=== PATIENT | female | born 1980 | race Caucasian/White ===

== ENCOUNTER 2018-04-13 15:39 | Emergency (ER) | payer MEDICAID ==
[2018-04-13] MEDS ORDERED: fentaNYL 100 MCG/2 ML INJ IVP ONE ×2 (16:24→18:15)
--- NOTE | 2018-04-13 16:29 | EDPHY ---
HPI/HX/ROS/PE/MDM Narrative: CHIEF COMPLAINT: , lower abdominal pain, vaginal discharge HISTORY OF PRESENT ILLNESS: The patient is a South African-speaking 19-week 38 y/o female arriving from [facility] complaining of lower abdominal pain and vaginal discharge worsening over the last day. She is A1 with a history of a prior miscarriage at 10 weeks in August 2017 and a delivery at 7 months with her daughter. She first noticed increased white vaginal discharge and mild lower abdominal pain yesterday. She went to her scheduled monthly OBGYN exam yesterday and declined an US due to cost, but otherwise was told she had a normal exam. She did have a headache at that time. Today she had increasing abdominal pain and returned to the clinic where the provider saw something "like the bag of holt" and referred her directly to the ED. She last felt movement this morning. This has progressed normally for her until these symptoms. She denies vaginal bleeding, urinary symptoms, vomiting, fever. Per [facility] paperwork, there was trace protein in her urine during her clinic visit today. No fever, chills, chest pain, shortness of breath, palpitations, vomiting, diarrhea, urinary complaints, lightheadedness. REVIEW OF SYSTEMS: Aside from elements discussed in the HPI, a comprehensive 10-point review of systems was reviewed and is negative. PAST MEDICAL HISTORY: A1 (spontaneous), Blood type: A+ SOCIAL HISTORY: South African-speaking, history obtained via South African-speech language pathologist prn. [facility] patient. VITAL SIGNS: Reviewed by me GENERAL: Well-developed, well-nourished, no respiratory distress. Is complaining of lower abdominal pain. HEENT: Atraumatic. Eyes: No icterus, no injection. Mouth: moist mucous membranes. No erythema or lesions. Neck: supple with no adenopathy. LUNGS: Clear to auscultation bilaterally, no wheezes, rhonchi or rales. CARDIAC: Regular rate and rhythm, no rubs, murmurs or gallops. ABDOMEN: Soft, the uterus is palpable to just below the level of the umbilicus. Mild tenderness over the lower uterine segment. : External exam: No blood noted. No discharge. Internal exam, speculum exam is deferred at this time. BACK: No CVA tenderness. EXTREMITIES: No trauma. No edema. Range of motion is normal throughout. NEURO: Alert and oriented, grossly nonfocal. SKIN: Warm and dry, no rash. PSYCHIATRIC: Normal mentation, no agitation. Portions of this note were transcribed by a diagnostic medical sonographer. I personally performed a history, physical exam, medical decision making, and confirmed accuracy of information the transcribed note. ED Course: External genital exam here is normal. Plan for IV and OBGYN consultation. 1610: Consulted with FELICE Bishop. He will assess patient in the ED and perform speculum exam. 50mcg IV Fentanyl ordered for pain. 1630: Limited bedside Obstetrics US performed by me shows brisk activity and heartbeat. Patient viewed US as well and viewed heartbeat. Dr. Rizvi is currently in the room assessing patient. Dr. Rizvi plans on transfer to [place] and will arrange transport. Patient received additional IV fluids secondary to complaints of lower abdominal discomfort and received fentanyl and Dilaudid for discomfort. Transport to [facility] was delayed for unclear reasons. 1930: Patient is now bleeding and called for assistance. Reassessed patient. She is having increased abdominal pain. Pelvic exam: cervical os is dilated on visual examination to about 3cm and bluish bag of holt visible behind it. Thin, watery bleeding is present. No clots. 193: Dr. Rizvi is also at bedside assessing patient. He feels of the patient's exam is not significantly changed from previously although the patient is having worsening pain. Advised that the best place for the patient remains [facility]. Eminent delivery is not felt to be present. We contacted EMS and advised that the patient needs to be emergently transported to [facility]. Shortly thereafter, [facility] present to the emergency department and transported the patient to [facility] emergently. Please see Dr. Rizvi's EMTALA firn regarding accepting physician. MDM: Differential diagnoses for the patient's symptom complex was considered including but not limited to the premature rupture of membranes, 2nd trimester miscarriage, distress, threatened miscarriage, placental abruption, placenta previa, cervical incompetence. - Data Points Medications Given: Discontinued Medications Fentanyl (Sublimaze) 50 mcg IVP EDNOW ONE Stop: 04/13/18 16:25 Last Admin: 04/13/18 16:34 Dose: 50 mcg Fentanyl (Sublimaze) 50 mcg IVP EDNOW ONE Stop: 04/13/18 18:16 Last Admin: 04/13/18 18:17 Dose: 50 mcg Hydromorphone HCl (Dilaudid) 1 mg IVP EDNOW ONE Stop: 04/13/18 18:44 Last Admin: 04/13/18 18:46 Dose: 1 mg Hydromorphone HCl (Dilaudid) 1 mg IVP EDNOW ONE Stop: 04/13/18 19:51 Last Admin: 04/13/18 19:55 Dose: 1 mg General Time Seen by Provider: 04/13/18 15:56 Initial Vital Signs: Initial Vital Signs Temperature (C) 36.7 C 04/13/18 15:49 Heart Rate 98 04/13/18 15:49 Respiratory Rate 19 04/13/18 15:49 Blood Pressure 110/71 04/13/18 15:49 O2 Sat (%) 96 04/13/18 15:49 O2 Delivery Mode Room Air Allergies/Adverse Reactions: Penicillins Allergy (Verified 04/13/18 15:48) Home Medications: Medication Instructions Recorded 04/13/18 Tylenol 04/13/18 Departure - Departure Disposition: Acute Care Hospital Not [facility] Clinical Impression: Threatened miscarriage Premature rupture of membranes Qualifiers: PROM onset of labor timing: unspecified duration between rupture of membranes and onset of labor PROM gestational age: -second trimester Qualified Code (s): O42.912 - premature rupture of membranes, unspecified as to length of time between rupture and onset of labor, second trimester Condition: Serious Referrals: NONE *PRIMARY CARE P,. [Primary Care Provider] - As per Instructions Report Scribed for: Rosmery Shaffer Report Scribed by: Kacie Syed Date of Report: 04/13/18 Time of Report: 16:30
--- NOTE | 2018-04-13 17:31 | PDCONSULT ---
Supervisor Prop Making Note: Consulting Service: ER Reason for Consultation: labor, suspected History of Present Illness: 38 yo at 19w3d by LMP c/w 8wk US with KENDY of 09/04/18 - presented by private car to the ER here after being seen at [facility] this afternoon in [place]. At that visit she was complaining of new pelvic pain and pressure and was found to have visible membranes in the vagina on speculum exam. She was instructed to present to closest ER. Speaking to her here she reports that she is having intermittent lower abdominal cramping and lower back pain - she admits she never really had contractions with her prior pregnancies but does feel that her abdomen is tight intermittently. No recent major illness or unusual symptoms, no fevers or chills. She has noticed an increased vaginal discharge newly today. No recent intercourse of trauma of any kind. She has a h/o MAB this past Spring 2017 - IUFD at 10 wks for which she did not need a D&C. Her 20 yo daughter was born via emergency in [place] in 1998. Per the patient's report with that she did seem to present initially with labor and/or cervical insufficiency as she was found to be dilated to 3cm at 28 wks. Was put on bed rest and per her report she developed bleeding a/w distress days later and was told they had to deliver the baby. Unknown scar as far as I can tell from [facility]'s records. With this she reports that her providers had discussed her early delivery and recommended [facility] but hadn't been able to get her first shot until just this week. No CLUS assessments thus far. Otherwise seemingly uncomplicated until this point. Normal PNL as below, pt declined aneuploidy testing as well as consultation with M for first trimester screening US as well as recommended level II US - declined due to financial concerns. Objective: Temp Pulse Resp BP Pulse Ox 36.7 C 111 H 16 118/75 95 04/13/18 15:49 04/13/18 16:58 04/13/18 16:58 04/13/18 16:58 04/13/18 16:58 Exam: Alert, NAD, appears anxious, does not appear to be actively laboring Abdomen is soft, NT, gravid, fundus at umbo - no unusual abdominal tenderness Sterile speculum exam shows NEFG, moderate white/lobo discharge in the vault Cervix is visually dilated to 3cm, approx 70% effaced, membranes clearly present at the os Bedside US by ER staff: Grossly normal fluid around baby Pos movement Pos FHR approximately 140bpm Assessment: labor Cervical insufficiency Advanced cervical dilation Plan: After examining the patient I called on-call MFM staff at the [place] Graciela Sepulveda MD - Discussed plan to transfer patient via non-emergency EMS ground/ ambulance and that they'd likely rule-out IAI before potential rescue cerclage tomorrow. Discussed with patient and EMS en route at the time of this note. Patient is stable and comfortable in her room. Jw Rizvi MD
[2018-04-13] MEDS ORDERED: fentaNYL 100 MCG/2 ML INJ ONE (18:14)
[2018-04-13] MEDS ORDERED: HYDROmorphONE/DILAUDID 2 MG/ML INJ IVP ONE ×2 (18:43→19:50)
[2018-04-13 19:47] VITALS: BP 127/67
== END 2018-04-13 19:58 | disposition short-term general hospital (02) ==
DX: O42.912 Preterm premature rupture of membranes, unspecified as to length of time between rupture and onset of labor, second trimester (principal); Z3A.19 19 weeks gestation of pregnancy
CPT/HCPCS: 96374; J1170; J3010